=== PATIENT | female | born 1965 | race Caucasian/White ===

== ENCOUNTER 2019-07-04 08:56 | Emergency (ER) | payer OTHER ==
[2019-07-04] MEDS ORDERED: dexAMETHasone 10 MG/ML VIAL ONE (09:51)
[2019-07-04] MEDS ORDERED: DIAZEPAM 5 MG TABLET ONE (09:52)
[2019-07-04] MEDS ORDERED: NA CHLORIDE 0.9% 1,000 ML ONE (09:52)
[2019-07-04] MEDS ORDERED: FENTANYL CITR 100 MCG/2 ML ONE (09:52)
[2019-07-04] MEDS ORDERED: ONDANSETRON 4 MG/2 ML VIAL ONE (09:53)
[2019-07-04] MEDS ORDERED: MORPHINE 4 MG/ML SYR ONE (11:04)
--- NOTE | 2019-07-04 11:29 | ER ---
Nurse's Notes [facility] Name: Maggy Zuñiga Age: 53 yrs Sex: Female : 1965 Arrival Date: 07/04/2019 Time: 09:00 Bed 20 Private MD: Herbert Cabrera Diagnosis: Low back pain;Radiculopathy, lumbar region Presentation: 07/04 09:20 Presenting complaint: Right low back pain that radiates to right leg x 1 week. Denies hb injury. Transition of care: patient was not received from another setting of care. Onset of symptoms was June 27, 2019. Risk Assessment: Do you want to hurt yourself or someone else? Patient reports no desire to harm self or others. Care prior to arrival: Medication(s) given: T3 and Flexeril 45 mins MANAGER SHIPPING. 09:20 Method Of Arrival: Ambulatory 09:20 Acuity: PATY 3 hb Historical: - Allergies: 09:24 "asthma steroids"; hb - Home Meds: 09:24 Flexeril Oral [Active]; Tylenol 3 [Active]; hb - PMHx: 09:24 Asthma; hb - PSHx: 09:24 Hernia repair; hb - Immunization history:: Adult Immunizations up to date. - Social history:: Smoking status: Patient/guardian denies using tobacco. - Ebola Screening: : No symptoms or risks identified at this time. Screenin:12 Abuse screen: Denies threats or abuse. Denies injuries from another. Nutritional sg screening: No deficits noted. Tuberculosis screening: No symptoms or risk factors identified. Never had TB. Fall Risk None identified. Assessment: 09:20 General: Appears in no apparent distress. well groomed, well developed, well nourished, sg Behavior is calm, cooperative, appropriate for age. Pain: Complains of pain in low back area Quality of pain is described as aching, sharp. Neuro: Level of Consciousness is awake, alert, obeys commands, Oriented to person, place, time, situation, Speech is normal, Facial symmetry appears normal. Cardiovascular: Capillary refill is brisk in bilateral fingers Patient's skin is warm and dry. Chest pain is denied. Respiratory: Airway is patent Respiratory effort is even, unlabored, Respiratory pattern is regular, symmetrical. GI: No signs and/or symptoms were reported involving the gastrointestinal system. : No signs and/or symptoms were reported regarding the genitourinary system. EENT: No signs and/or symptoms were reported regarding the EENT system. Derm: Skin is pink, warm \\T\\ dry. Musculoskeletal: Circulation, motion, and sensation intact. Range of motion: intact in all extremities, Reports pain in low back area. 10:12 Reassessment: Patient appears in no apparent distress at this time. Patient and/or sg family updated on plan of care and expected duration. Pain level reassessed. Patient is alert, oriented x 3, equal unlabored respirations, skin warm/dry/pink. 12:20 Reassessment: Patient appears in no apparent distress at this time. pt ambulatory to ER sg restroom from exam room with standby assist. Vital Signs: 09:22 BP 122 / 64; Pulse 68; Resp 16; Temp 97.3; Pulse Ox 100% on R/A; Weight 63.5 kg; Height hb 5 ft. 7 in. (170.18 cm); Pain 10/10; 10:28 BP 118 / 75; Pulse 48; Resp 16; Pulse Ox 97% on R/A; mh5 12:40 BP 119 / 66; Pulse 52; Resp 18; Pulse Ox 100% on R/A; sg 09:22 Body Mass Index 21.93 (63.50 kg, 170.18 cm) ED Course: 09:00 Patient arrived in ED. rg4 09:00 Herbert Cabrera MD is Private Physician. rg4 09:00 Chandni Perez F[facility]-C is [facility]. snw 09:00 Jimy Cornell MD is Attending Physician. snw 09:22 Triage completed. hb 09:22 Arm band placed on. hb 09:24 Miguel Isbell, ISAAC is Primary Nurse. sg 09:59 Inserted saline lock: 22 gauge in right antecubital area, using aseptic technique. 5 Blood collected. 10:00 Patient has correct armband on for positive identification. Bed in low position. Call 5 light in reach. Side rails up X 1. Adult w/ patient. Warm blanket given. Pulse ox on. NIBP on. 11:28 Herbert Cabrera MD is Referral Physician. snw 12:40 IV discontinued, bleeding controlled, Pressure dressing applied. 5 12:50 No provider procedures requiring assistance completed. IV discontinued, intact, sg bleeding controlled, No redness/swelling at site. Pressure dressing applied. Administered Medications: 10:00 Drug: NS 0.9% 1000 ml Route: IV; Rate: 1 bolus; Site: right antecubital; sg 10:00 Drug: Decadron - Dexamethasone 10 mg Route: IVP; Site: right antecubital; sg 10:50 Follow up: Response: No adverse reaction; Pain is unchanged, physician notified sg 10:00 Drug: fentaNYL (PF) 25 mcg Route: IVP; Site: right antecubital; sg 10:50 Follow up: Response: No adverse reaction; Pain is unchanged, physician notified sg 10:00 Drug: Valium 10 mg Route: PO; sg 10:50 Follow up: Response: No adverse reaction sg 10:10 Drug: Zofran 4 mg Route: IVP; Site: right antecubital; sg 10:51 Follow up: Response: No adverse reaction sg 11:04 Drug: morphine 4 mg Route: IVP; Site: right antecubital; sg Outcome: 11:28 Discharge ordered by . sneugenie 12:50 Discharged to home via wheelchair, with family. sg 12:50 Condition: improved 12:50 Discharge instructions given to patient, family, Instructed on discharge instructions, follow up and referral plans. medication usage, safety practices, Demonstrated understanding of instructions, follow-up care, medications, Prescriptions given X 4. 12:53 Patient left the ED. Signatures: Miguel Isbell RN RN Chandni Perez, FORMING MACHINE OPERATOR-C FORMING MACHINE OPERATOR-Csnw Mariza Herrera RN RN hb Garcia, Rubi [facility] Kristy Cheng [facility]
--- NOTE | 2019-07-04 11:29 | EDPHYS ---
Physician Documentation [facility] [place] Name: Maggy Zuñiga Age: 53 yrs Sex: Female : 1965 Arrival Date: 07/04/2019 Time: 09:00 Bed 20 Private MD: Herbert Cabrera ED Physician Jimy Cornell HPI: 07/04 11:32 This 53 yrs old Female presents to ER via Ambulatory with complaints of Back snw Pain. 11:32 The patient presents with pain that is acute. The symptoms are located in the low back. snw Onset: The symptoms/episode began/occurred suddenly, 1 week(s) ago, and became worse and became persistent. Location: down right buttock and posterior leg. Associated signs and symptoms: Pertinent negatives: constipation, fever, incontinence, tingling, urinary retention. The problem was sustained from twisting. Modifying factors: The patient symptoms are alleviated by nothing, the patient symptoms are aggravated by any movement. Severity of symptoms: At their worst the symptoms were incapacitating. The patient has not experienced similar symptoms in the past. The patient has been recently seen by a physician: the patient's primary care provider, with similar presenting complaints, X-rays were performed, given T#3, Flexeril - now unable to tolerate pain. Historical: - Allergies: 09:24 "asthma steroids"; hb - Home Meds: 09:24 Flexeril Oral [Active]; Tylenol 3 [Active]; hb - PMHx: 09:24 Asthma; hb - PSHx: 09:24 Hernia repair; hb - Immunization history:: Adult Immunizations up to date. - Social history:: Smoking status: Patient/guardian denies using tobacco. - Ebola Screening: : No symptoms or risks identified at this time. ROS: 11:31 Constitutional: Negative for fever, chills, and weight loss, Eyes: Negative for injury, snw pain, redness, and discharge, ENT: Negative for injury, pain, and discharge, Neck: Negative for injury, pain, and swelling, Cardiovascular: Negative for chest pain, palpitations, and edema, Respiratory: Negative for shortness of breath, cough, wheezing, and pleuritic chest pain, Abdomen/GI: Negative for abdominal pain, nausea, vomiting, diarrhea, and constipation, : Negative for injury, bleeding, discharge, and swelling, MS/Extremity: Negative for injury and deformity, burning down right buttock and posterior leg Skin: Negative for injury, rash, and discoloration. 11:31 Back: Positive for decreased range of motion, pain at rest, pain with movement, radiated pain, of the low back area. Exam: 09:44 Head/Face: Normocephalic, atraumatic. Eyes: Pupils equal round and reactive to light, snw extra-ocular motions intact. Lids and lashes normal. Conjunctiva and sclera are non-icteric and not injected. Cornea within normal limits. Periorbital areas with no swelling, redness, or edema. ENT: Nares patent. No nasal discharge, no septal abnormalities noted. Tympanic membranes are normal and external auditory canals are clear. Oropharynx with no redness, swelling, or masses, exudates, or evidence of obstruction, uvula midline. Mucous membranes moist. Neck: Trachea midline, no thyromegaly or masses palpated, and no cervical lymphadenopathy. Supple, full range of motion without nuchal rigidity, or vertebral point tenderness. No Meningismus. Chest/axilla: Normal chest wall appearance and motion. Nontender with no deformity. No lesions are appreciated. Cardiovascular: Regular rate and rhythm with a normal S1 and S2. No gallops, murmurs, or rubs. Normal PMI, no JVD. No pulse deficits. Respiratory: Lungs have equal breath sounds bilaterally, clear to auscultation and percussion. No rales, rhonchi or wheezes noted. No increased work of breathing, no retractions or nasal flaring. Abdomen/GI: Soft, non-tender, with normal bowel sounds. No distension or tympany. No guarding or rebound. No evidence of tenderness throughout. Skin: Warm, dry with normal turgor. Normal color with no rashes, no lesions, and no evidence of cellulitis. Neuro: Awake and alert, GCS 15, oriented to person, place, time, and situation. Cranial nerves II-XII grossly intact. Motor strength 5/5 in all extremities. Sensory grossly intact. Cerebellar exam normal. Normal gait. Psych: Awake, alert, with orientation to person, place and time. Behavior, mood, and affect are within normal limits. 09:44 MS/ Extremity: Pulses equal, no cyanosis. Neurovascular intact. Full, normal range of motion. 09:44 Constitutional: The patient appears awake, anxious, uncomfortable. 09:44 Back: pain, that is moderate, ROM is painful, with all movement, CVA tenderness, is absent, muscle spasm, is appreciated in the low back area, pt refuses movement. 09:44 Neuro: Exam negative for acute changes, Orientation: is normal, Motor: pt refuses movement, tone normal. Vital Signs: 09:22 BP 122 / 64; Pulse 68; Resp 16; Temp 97.3; Pulse Ox 100% on R/A; Weight 63.5 kg; Height hb 5 ft. 7 in. (170.18 cm); Pain 10/10; 10:28 BP 118 / 75; Pulse 48; Resp 16; Pulse Ox 97% on R/A; mh5 12:40 BP 119 / 66; Pulse 52; Resp 18; Pulse Ox 100% on R/A; sg 09:22 Body Mass Index 21.93 (63.50 kg, 170.18 cm) hb MDM: 09:19 Patient medically screened. ayanna 11:31 Data reviewed: vital signs, nurses notes. Data interpreted: Pulse oximetry: on room air snw is 97 %. Interpretation: normal. Counseling: I had a detailed discussion with the patient and/or guardian regarding: the historical points, exam findings, and any diagnostic results supporting the discharge/admit diagnosis, the need for outpatient follow up, to return to the emergency department if symptoms worsen or persist or if there are any questions or concerns that arise at home. Special discussion: Based on the history and exam findings, there is no indication for further emergent testing or inpatient evaluation. I discussed with the patient/guardian the need to see the back specialist for further evaluation of the symptoms. I discussed with the patient/guardian the need to see the primary care provider for further evaluation of the symptoms. 07/04 10:01 Order name: Saline Lock; Complete Time: 10: Administered Medications: 10:00 Drug: NS 0.9% 1000 ml Route: IV; Rate: 1 bolus; Site: right antecubital; sg 10:00 Drug: Decadron - Dexamethasone 10 mg Route: IVP; Site: right antecubital; sg 10:50 Follow up: Response: No adverse reaction; Pain is unchanged, physician notified sg 10:00 Drug: fentaNYL (PF) 25 mcg Route: IVP; Site: right antecubital; sg 10:50 Follow up: Response: No adverse reaction; Pain is unchanged, physician notified sg 10:00 Drug: Valium 10 mg Route: PO; sg 10:50 Follow up: Response: No adverse reaction sg 10:10 Drug: Zofran 4 mg Route: IVP; Site: right antecubital; sg 10:51 Follow up: Response: No adverse reaction sg 11:04 Drug: morphine 4 mg Route: IVP; Site: right antecubital; sg Disposition: 15:13 Co-signature as Attending Physician, Jimy Cornell MD I agree with the assessment and ayanna plan of care. Disposition: 07/04/19 11:28 Discharged to Home. Impression: Low back pain, Radiculopathy, lumbar region. - Condition is Stable. - Discharge Instructions: Back Pain, Adult, Lumbosacral Radiculopathy, Musculoskeletal Pain, Back Injury Prevention, [id number], Cryotherapy, Rehydration, Adult, Heat Therapy. - Prescriptions for Prednisone 20 mg Oral Tablet - take 2 tablet by ORAL route once daily for 5 days; 10 tablet. Pepcid 20 mg Oral Tablet - take 1 tablet by ORAL route once daily; 20 tablet. Tylenol- Codeine #3 300-30 mg Oral Tablet - take 2 tablets by ORAL route every 6 hours As needed; 16 tablet. orphenadrine citrate 100 mg Oral Tablet Sustained Release - take 1 tablet by ORAL route 2 times per day As needed; 20 tablet. - Work release form, Medication Reconciliation Form, Thank You Letter, Antibiotic Education, Prescription Opioid Use form. - Follow up: Herbert Cabrera MD; When: 2 - 3 days; Reason: Recheck today's complaints, Continuance of care, Re-evaluation by your physician. Follow up: Emergency Department; When: As needed; Reason: Worsening of condition. Signatures: Miguel Isbell RN RN sg Anderson, Corey, MD MD cha Therrien, Shelly, FNP-C FNP-Mariza Vega, RN Kristy Bourgeois [facility] Corrections: (The following items were deleted from the chart) 12:53 11:28 07/04/2019 11:28 Discharged to Home. Impression: Low back pain; Radiculopathy, hb lumbar region. Condition is Stable. Forms are Medication Reconciliation Form, Thank You Letter, Antibiotic Education, Prescription Opioid Use. Follow up: Herbert Cabrera; When: 2 - 3 days; Reason: Recheck today's complaints, Continuance of care, Re-evaluation by your physician. Follow up: Emergency Department; When: As needed; Reason: Worsening of condition. snw
[2019-07-04 12:57] VITALS: TEMP 97.3
[2019-07-04 12:58] VITALS: BP 118/75; O2SAT 97
== END 2019-07-04 12:53 | disposition home or self-care (01) ==
LOC: ER 08:56
DX: M54.16 Radiculopathy, lumbar region (principal); Z88.8 Allergy status to other drugs, medicaments and biological substances
CPT/HCPCS: 96375; 96374; 99284; J3010; J1100; J7030; J2405